=== PATIENT | female | born 1985 | race Caucasian/White ===

== ENCOUNTER → 2024-03-06 | Outpatient (CLI) | payer BC ==
[2024-03-06 14:32] LABS: HCT 45.7 % (37.2-46.3); HGB 14.7 g/dL (12.0-15.0); MCH 29.9 pg (27.0-32.0); MCHC 32.2 g/dL (32.0-37.0); MCV 92.9 FL (80.0-97.0); Mean Platelet Volume 9.8 FL (9.5-12.2); NRBC Per 100 WBC 0 X 10*3/uL (0.00-0.01); Platelet Count 250 X 10*3/uL (140-440); RBC 4.92 X 10*6/uL (4.10-5.20); RDW 11.5 % (11.5-14.5); WBC 5.05 X 10*3/uL (4.50-10.00)
[2024-03-06 14:51] LABS: ALT 43 U/L (8-44); AST 23 U/L (13-35); Albumin 4.6 g/dL (3.8-4.9); Alkaline Phosphatase 67 U/L (41-126); BUN/Creat Ratio 14.57 Ratio (12.00-20.00); Blood Urea Nitrogen 10.2 mg/dL (9.0-27.0); Calcium 9.6 mg/dL (8.7-10.3); Carbon Dioxide 23.8 mmol/L (21.6-31.8); Chloride 108 mmol/L (96-109); Globulin 2.3 g/dL (1.6-3.3); Glucose 106 mg/dL (70-110); LDL Cholesterol,Calculated 74.7 mg/dL (0.0-131.0); Potassium 4.3 mmol/L (3.5-5.5); Sodium 143 mmol/L (135-145); Total Bilirubin 0.5 mg/dL (0.3-1.2); Total Protein 6.9 g/dL (6.2-8.2); VLDL Calculation 12.08 mg/dL (5.00-40.00)
== END | disposition home or self-care (01) ==
LOC: LABWHC1 08:36
PROVIDERS: ATTEND Student in an Organized Health Care Education/Training Program
DX: Z00.00 Encounter for general adult medical examination without abnormal findings (principal)
CPT/HCPCS: 36415; 80053; 80061; 83036; 85027

== ENCOUNTER → 2024-04-10 | Outpatient (CLI) | payer BC ==
[2024-04-10 14:28] LABS: NT-Pro-B-Type Natriuretic Pept 78 pg/mL (0-125)
[2024-04-10 14:37] LABS: HCT 44.2 % (37.2-46.3); HGB 14.7 g/dL (12.0-15.0); MCH 29.6 pg (27.0-32.0); MCHC 33.3 g/dL (32.0-37.0); MCV 89.1 FL (80.0-97.0); Mean Platelet Volume 9.5 FL (9.5-12.2); NRBC Per 100 WBC 0 X 10*3/uL (0.00-0.01); Platelet Count 257 X 10*3/uL (140-440); RBC 4.96 X 10*6/uL (4.10-5.20); RDW 11.7 % (11.5-14.5); WBC 4.87 X 10*3/uL (4.50-10.00)
[2024-04-10 15:20] LABS: Blood Urea Nitrogen 11.6 mg/dL (9.0-27.0); Chloride 106 mmol/L (96-109); Chol/HDL Ratio 3.22 Ratio; Glucose 110 mg/dL (70-110); LDL Cholesterol,Calculated 87.6 mg/dL (0.0-131.0); Potassium 4.3 mmol/L (3.5-5.5); Sodium 143 mmol/L (135-145); VLDL Calculation 19.24 mg/dL (5.00-40.00)
== END | disposition home or self-care (01) ==
LOC: LABWHC1 10:27
PROVIDERS: ATTEND Student in an Organized Health Care Education/Training Program
DX: E78.5 Hyperlipidemia, unspecified (principal); E11.9 Type 2 diabetes mellitus without complications
CPT/HCPCS: 36415; 80048; 80061; 83036; 83695; 83880; 85027

== ENCOUNTER → 2024-11-13 | Outpatient (CLI) | payer BC ==
[2024-11-13 15:11] LABS: Chol/HDL Ratio 3.05 Ratio; LDL Cholesterol,Calculated 78.7 mg/dL (0.0-131.0)
== END | disposition home or self-care (01) ==
LOC: LABWHC1 09:15
PROVIDERS: ATTEND Student in an Organized Health Care Education/Training Program
DX: E11.9 Type 2 diabetes mellitus without complications (principal); E78.5 Hyperlipidemia, unspecified
CPT/HCPCS: 36415; 80061; 83036